=== PATIENT | male | born 1990 | race Caucasian/White ===

== ENCOUNTER → 2022-08-28 | Outpatient (CLI) | payer OTHER ==
[~2022-08-28] MED LIST: **SFHN** LIDOCAINE 1% MDV 20ML VIAL ONE; ISOVUE-300 61% 100ML VIAL ONE; PROHANCE 279.3MG/ML 5ML VIAL ONE
== END ==
LOC: M PLAIMG 12:44
PROVIDERS: ATTEND Nurse Practitioner Family
DX: M25.512 Pain in left shoulder (principal)
CPT/HCPCS: 23350; 73223; 76000; A9576; Q9967

== ENCOUNTER 2023-11-20 15:51 | Emergency (ER) | payer OTHER ==
[~2023-11-20] VITALS: Ht 188 cm; Wt 102.9 kg
[2023-11-20] MEDS ORDERED: LEXA1TAB PO (16:03)
[2023-11-20] MEDS: methylPREDNISolone 125MG 2ML VIAL IM ONE (18:40)
[2023-11-20] MEDS: IPRATROPIUM 0.5MG/ALBUTEROL 2.5MG INH SOL UD 3ML (DUONEB) NEB ONE (19:21)
[2023-11-20 19:51] VITALS: O2SAT 96
[2023-11-20] MEDS ORDERED: AZIT-10 PO (20:00)
[2023-11-20 20:15] VITALS: BP 143/82; TEMP 99.6
[2023-11-20] MEDS: AZITHROMYCIN 250MG TABLET PO ONE (20:16)
== END 2023-11-20 20:19 | disposition home or self-care (01) ==
LOC: M ED 15:51
DX: J15.7 Pneumonia due to Mycoplasma pneumoniae (principal); F10.10 Alcohol abuse, uncomplicated; Z79.2 Long term (current) use of antibiotics; Z79.899 Other long term (current) drug therapy
CPT/HCPCS: 71046; 87486; 87581; 87633; 87798; 93005; 94640; 96372; 99284; J2919